=== PATIENT | female | born 1980 | race Caucasian/White ===

== ENCOUNTER → 2019-12-12 09:13 | Outpatient (CLI) | payer BC, SELFPAY ==
--- NOTE | ~2019-12-12 | XR_ITS ---
XR heel LT min 2V DATE: 12/12/2019 10:01 INDICATION: Bilateral heel pain TECHNIQUE: Axial and lateral views COMPARISON: None FINDINGS: Prominent posterior calcaneal enthesopathy. Minimal plantar calcaneal enthesopathy. No frac ture or dislocation or bone destruction is detected. IMPRESSION: Posterior calcaneal enthesopathy Minimal plantar calcaneal enthesopathy. Reviewed, dictated and finalized at location A.
--- NOTE | ~2019-12-12 | XR_ITS ---
XR foot RT 2V, XR foot LT 2V 12/12/2019 10:02 Indication: Bilateral heel pain Procedure: 2 views of each foot Comparison: No prior studies for comparison. Findings: There are small bilateral degenerative calcaneal enthesophytes. Normal mineralization. Norm al anatomic alignment. Lisfranc joint intact. No fracture or traumatic malalignment. No significant d egenerative change. No focal soft tissue abnormality. Impression: 1: Small bilateral calcaneal degenerative enthesophytes. Reviewed, dictated and finalized at location B. Impression: 1: Small bilateral calcaneal degenerative enthesophytes. Impression: 1: Small bilateral calcaneal degenerative enthesophytes.
--- NOTE | ~2019-12-12 | XR_ITS ---
XR heel RT min 2V DATE: 12/12/2019 10:01 INDICATION: Bilateral heel pain TECHNIQUE: Axial and lateral views COMPARISON: None FINDINGS: There is prominent posterior calcaneal enthesopathy and minimal plantar calcaneal enthesopa thy. No fracture or dislocation or bone destruction. IMPRESSION: Prominent posterior calcaneal enthesopathy Minimal plantar calcaneal enthesopathy Reviewed, dictated and finalized at location A.
== END ==
PROVIDERS: PCP Nurse Practitioner Family; Visit Provider Nurse Practitioner Family
DX: M79.671 Pain in right foot (principal); M79.672 Pain in left foot; M77.32 Calcaneal spur, left foot; M77.31 Calcaneal spur, right foot
CPT/HCPCS: 73620; 73650

== ENCOUNTER → 2022-09-11 16:50 | Outpatient (CLI) | payer BC, SELFPAY ==
--- NOTE | ~2022-09-11 | MR_ITS ---
MRI of the brain Clinical History: Visual disturbance Technique: Axial and sagittal T1-weighted images were acquired. These were followed by axial T2-weigh bryanna, diffusion weighted, gradient, and FLAIR images. Findings: There is no acute infarct, intracranial hemorrhage, or mass lesion. There are minimal chron ic white matter changes in the periventricular white matter bilaterally. Ventricles and subarachnoid spaces are unremarkable. Orbits are unremarkable. Paranasal sinuses and m astoid air cells are clear. Major intracranial flow voids appear intact. Sagittal midline structures are intact. IMPRESSION: No acute abnormality. Minimal chronic white matter changes. Reviewed, dictated and finalized at location M.
== END ==
PROVIDERS: PCP Nurse Practitioner Family; Visit Provider Nurse Practitioner Family
DX: H53.9 Unspecified visual disturbance (principal)
CPT/HCPCS: 70551

== ENCOUNTER → 2022-10-27 14:15 | Outpatient (CLI) | payer BC, SELFPAY ==
--- NOTE | ~2022-10-27 | US_ITS ---
EXAMINATION: US thyroid DATE: 10/27/2022 14:30 INDICATION: Goiter. TECHNIQUE: Multiple ultrasound images of the thyroid were obtained. COMPARISON: Ultrasound 03/30/2017 FINDINGS: The right thyroid lobe measures 6.5 x 1.6 x 2.8 cm. The left thyroid lobe measures 6.3 x 1.7 x 2.2 c m. In the left thyroid lobe, there is a 2.0 cm mixed cystic and solid, hypoechoic, wider than tall n odule with smooth margin without echogenic foci (TI-RADS TR3). IMPRESSION: 1. Thyroid nodule with enlargement from 03/30/2017. Thyroid ultrasound is recommended in one year. Reviewed, dictated and finalized at location A. IMPRESSION: 1. Thyroid nodule with enlargement from 03/30/2017. Thyroid ultrasound is recomm ended in one year.
== END ==
PROVIDERS: PCP Nurse Practitioner Family; Visit Provider Internal Medicine Endocrinology, Diabetes & Metabolism
DX: E04.1 Nontoxic single thyroid nodule (principal)
CPT/HCPCS: 76536